=== PATIENT | female | born 1955 | race Caucasian/White ===

== ENCOUNTER 2019-08-26 16:33 | Emergency (ER) | payer BC ==
--- OUTSIDE RECORDS SUMMARY | 2019-08-26 16:39 | XMS REPORT | Continuity of Care Document ---
:1955 External Reference #:[id number] Author Name Jacinta Zambrano MD Address [address] [place] [address] Problems Active Problems Provider Date Tubular adenoma of colon Onset: 07/16/2018 Acute meniscal tear, lateral Onset: 07/01/2018 Osteopenia Onset: 02/06/2018 Mitral valve regurgitation Onset: 01/23/2018 Allergic rhinitis Onset: 04/06/2015 Social History Type Date Description Comments Sex Unknown Tobacco Use Start: Unknown End: Unknown Patient is a former smoker Smoking Status Reviewed: 07/31/19 Patient is a former smoker Allergies, Adverse Reactions, Alerts Description No Known Drug Allergies Medications Active Medications SIG Qnty Indications Ordering Provider Date Fish Oil 1000mg Unknown Capsules Multivitamin Adult Unknown Tablets Immunizations CPT Code Status Date Vaccine Lot # [id number] Given 05/05/2019 Flu < 65 years [id number] 28328 Given 01/17/2019 Shingrix - Shingles vaccine, Herpes Zoster 24511 Given 10/09/2016 Influenza Virus Vaccine, Quadrivalent, Split Virus, Im Use 0.5ML 13780 Given 10/09/2016 Flu < 65 years 03485 Given 10/09/2016 Influenza Virus Vaccine, Quadrivalent, Split, Preservative Free 25017 Given 10/09/2016 Flumist 80568 Given 10/09/2016 Flu High Dose 92425 Given 10/09/2016 Influenza Virus Vaccine, Split, Preserv Free, Intradermal Use 58556 Given 10/04/2015 Tdap - Boostrix/Adacel 93268 Given 11/12/2012 Hep A Adult for >18 yrs Havrix/Vaqta 05850 Given 11/12/2012 Typhoid Vaccine Vicps Intramuscular 25365 Given 05/19/2011 Influenza Virus Vaccine, Quadrivalent, Split, Im Use 0.25ML 86051 Given 05/19/2011 Influenza Virus Vaccine, Quadrivalent, Split, Im Use 0.25ML 92167 Given 05/19/2011 Influenza Virus Vaccine, Quadrivalent, Split, Im Use 0.25ML 98955 Given 05/19/2011 Influenza Virus Vaccine, Quadrivalent, Split, Im Use 0.25ML 24312 Given 05/19/2011 Influenza Virus Vaccine Split Virus Intramuscular Use 0.5ML 75901 Refused 01/23/2018 Influenza Virus Vaccine, Quadrivalent, Split, Im Use 0.25ML 93051 Refused 07/14/2014 Influenza Virus Vaccine, Quadrivalent, Split, Im Use 0.25ML Vital Signs Date Vital Result Comment 07/31/2019 2:12pm BP Systolic 114 mmHg BP Diastolic 72 mmHg Height 65.25 inches 5'5.25" Weight 141.00 lb Heart Rate 74 /min Body Temperature 98.6 F O2 % BldC Oximetry 98 % BMI (Body Mass Index) 23.3 kg/m2 05/05/2019 8:57am BP Systolic 98 mmHg BP Diastolic 64 mmHg Height 65.25 inches 5'5.25" Weight 141.00 lb Heart Rate 61 /min Body Temperature 96.1 F O2 % BldC Oximetry 98 % BMI (Body Mass Index) 23.3 kg/m2 Abdominal Girth Measurement 32.75 inches Results Test Acquired Facility Test Result H/L Range Note Date 10 Yr CHD Risk 02/06/2019 N2N/CCD Import 10 Yr CHD Risk 2.5%. TSH 02/03/2019 N2N/CCD Import TSH 2.47 0.34-5.60 mcIU/mL mcIU/mL Triglycerides 02/03/2019 N2N/CCD Import Triglycerides 96 mg/dL Sodium 02/03/2019 N2N/CCD Import Sodium 140 mmol/L 135-145 mmol/L PTT 02/03/2019 N2N/CCD Import PTT 32.4 26.0-38.0 seconds seconds Protein, Total 02/03/2019 N2N/CCD Import Protein, Total 6.2 g/dL Low 6.4- 8.9 g/dL Potassium 02/03/2019 N2N/CCD Import Potassium 4.2 mmol/L 3.5-5.0 mmol/L LDL Cholesterol 02/03/2019 N2N/CCD Import LDL Cholesterol 131 mg/dL HDL Cholesterol 02/03/2019 N2N/CCD Import HDL Cholesterol 71.8 mg/dL Glucose 02/03/2019 N2N/CCD Import Glucose 85 mg/dL 70-100 mg/dL Globulin 02/03/2019 N2N/CCD Import Globulin 2.0 g/dL 2-4 g/dL GFR Non Afr Amer 02/03/2019 N2N/CCD Import GFR Non Afr Amer 67.8 _ >60 GFR Afr Amer 02/03/2019 N2N/CCD Import GFR Afr Amer 82.0 _ >60 Creatinine 02/03/2019 N2N/CCD Import Creatinine 0.85 mg/dL 0.51-0.95 mg/dL Co2 02/03/2019 N2N/CCD Import Co2 27 mmol/L 22-32 mmol/L Cholesterol 02/03/2019 N2N/CCD Import Cholesterol 222 mg/dL Chloride 02/03/2019 N2N/CCD Import Chloride 106 mmol/L 101-111 mmol/L Calcium 02/03/2019 N2N/CCD Import Calcium 9.4 mg/dL 8.6-10.3 mg/dL BUN/Creat Ratio 02/03/2019 N2N/CCD Import BUN/Creat Ratio 17.6 _ 8-20 BUN 02/03/2019 N2N/CCD Import BUN 15 mg/dL 6-24 mg/dL Bilirubin Total 02/03/2019 N2N/CCD Import Bilirubin Total 0.70 mg/dL 0.2 -1.0 mg/dL Ast 02/03/2019 N2N/CCD Import Ast 18 U/L 13-39 U/L Anion Gap 02/03/2019 N2N/CCD Import Anion Gap 7 mmol/L 2-11 mmol/L Alt 02/03/2019 N2N/CCD Import Alt 13 U/L 7-52 U/L Alk Phos 02/03/2019 N2N/CCD Import Alk Phos 72 U/L 34-104 U/L Albumin 02/03/2019 N2N/CCD Import Albumin 4.2 g/dL 3.2-5.2 g/dL A/G Ratio 02/03/2019 N2N/CCD Import A/G Ratio 2.1 _ 1-3 Procedures Description No Information Available Medical Devices Description No Information Available Encounters Type Date Location Provider Dx Diagnosis Office Visit 05/05/2019 [facility] Diana Rivas, Z00.00 Encntr for general 8:45a adult medical exam w/o abnormal findings Z23 Encounter for immunization Z68.23 Body mass index (BMI) 23.0-23.9, adult Assessments Date Code Description Provider 07/31/2019 M79.10 Myalgia, unspecified site Jacinta Zambrano MD 07/31/2019 M25.551 Pain in right hip Jacinta Zambrano MD 05/05/2019 Z00.00 Encounter for general adult medical Diana Rivas, examination without abnormal findings 05/05/2019 Z23 Encounter for immunization Diana Rivas DO 05/05/2019 Z68.23 Body mass index (BMI) 23.0-23.9, adult Diana Rivas DO Plan of Treatment No Information Available Functional Status Description No Information Available Mental Status Description No Information Available Referrals Description No Information Available
--- OUTSIDE RECORDS SUMMARY | 2019-08-26 16:39 | XMS REPORT | Continuity of Care Document ---
:1955 External Reference #:[id number] Author Name Jacinta Zambrano MD Address [address] [place] [address] Problems Active Problems Provider Date Tubular adenoma [...] CPT Code Status Date Vaccine Lot # [id number] Given 05/05/2019 Flu < 65 years [id number] 08862 Given 01/17/2019 Shingrix - Shingles vaccine, Herpes Zoster 53860 Given 10/09/2016 Influenza Virus Vaccine, Quadrivalent, Split Virus, Im Use 0.5ML 47002 Given 10/09/2016 Flu < 65 years 27434 Given 10/09/2016 Influenza Virus Vaccine, Quadrivalent, Split, Preservative Free 58393 Given 10/09/2016 Flumist 36244 Given 10/09/2016 Flu High Dose 82422 Given 10/09/2016 Influenza Virus Vaccine, Split, Preserv Free, Intradermal Use 43894 Given 10/04/2015 Tdap - Boostrix/Adacel 43761 Given 11/12/2012 Hep A Adult for >18 yrs Havrix/Vaqta 68463 Given 11/12/2012 Typhoid Vaccine Vicps Intramuscular 78858 Given 05/19/2011 Influenza Virus Vaccine, Quadrivalent, Split, Im Use 0.25ML 01919 Given 05/19/2011 Influenza Virus Vaccine, Quadrivalent, Split, Im Use 0.25ML 26032 Given 05/19/2011 Influenza Virus Vaccine, Quadrivalent, Split, Im Use 0.25ML 69599 Given 05/19/2011 Influenza Virus Vaccine, Quadrivalent, Split, Im Use 0.25ML 90765 Given 05/19/2011 Influenza Virus Vaccine Split Virus Intramuscular Use 0.5ML 97788 Refused 01/23/2018 Influenza Virus Vaccine, Quadrivalent, Split, Im Use 0.25ML 08596 Refused 07/14/2014 Influenza Virus Vaccine, Quadrivalent, Split, [...] Girth Measurement 32.75 inches Results Test Acquired Date Facility Test Result H/L Range Note Lyme Disease AB 07/31/2019 [facility] IgG Immunoblot Negative Negative Immunoblot WB [address] [place] [address] [phone] IgG detected against p41,p39 kDa IgM Immunoblot Negative Negative IgM detected against None kDa Lyme Disease Interpretation See Comment 1 Arthritis Panel 07/31/2019 [facility] Uric Acid 4.2 mg/dL Normal 2.3-6.[address] [place] [address] [phone] Rheumatoid Factor 11 IU/mL Normal <15 Erythrocyte Sed Rate 5 mm/Hr Normal 0-29 Anti-Nuclear Antibody 0.2 U 2 Cyclic Citrullinated Peptide <15.6 U 3 Interpretation See Comment 4 1 Specific serologic response to B. burgdorferi infection is not detected, but cannot rule out early infection during which low or undetectable antibody levels to B. burgdorferi may be present. If clinically indicated, a new serum specimen should be submitted in 7-14 days. ADDITIONAL INFORMATION Per CDC criteria, the Lyme IgG Immunoblot is interpreted as positive if IgG-class antibodies are detected to >=5 B. burgdorferi proteins, and the Lyme IgM Immunoblot is interpreted as positive if IgM-class antibodies are detected to >=2 B. burgdorferi proteins. Immunoblot patterns not meeting these criteria should not be interpreted as positive. Epitopes from certain B. burgdorferi proteins (e.g., p41) are conserved across other bacteria, which may lead to the detection of IgM- and/or IgG-class antibodies on the Lyme disease immunoblots in patients without Lyme disease. Immunoblot should only be ordered on specimens that are positive or equivocal by a FDA-licensed Lyme disease antibody screening test (e.g., EIA). Results of the Lyme IgM immunoblot should not be considered in patients with >= 30 days of symptoms. Test Performed by: [facility] [place] [address] Jewelsmith: Capo Frances M.D. Ph.D.; CLIA# [id number] 2 REFERENCE VALUE <=1.0 (Negative) 3 REFERENCE VALUE <20.0 (Negative) 4 Tests for antibodies to dsDNA and RORO antigens are not performed automatically unless the ANDREA result is > or = 3.0 U. Studies performed at [facility] indicate that positive ANDREA results <3.0 U are rarely accompanied by positive second order tests. Test Performed by: [facility] [place] [address] Jewelsmith: Capo Frances M.D. Ph.D.; CLIA# [id number] Procedures Description No Information Available Medical Devices Description No Information Available Encounters Type Date Location Provider Dx Diagnosis Office Visit 05/05/2019 [facility] Diana Rivas, Z00.00 Encntr for general 8:45a adult medical exam w/o abnormal findings Z23 Encounter for immunization Z68.23 Body mass index (BMI) 23.0-23.9, adult Assessments Date Code Description Provider 07/31/2019 M79.10 Myalgia, unspecified site Jacinta Zambrano MD 07/31/2019 M25.551 Pain in right hip Jacinta Zambrano MD 05/05/2019 Z00.00 Encounter for general adult medical Diana Rivas DO examination without abnormal findings 05/05/2019 Z23 Encounter for immunization Diana Rivas DO 05/05/2019 Z68.23 Body mass index (BMI) 23.0-23.9, adult Diana Rivas DO Plan of Treatment No Information Available Functional Status Description No Information Available Mental Status Description No Information Available Referrals Description No Information Available
[2019-08-26 16:46] VITALS: BP 123/74
--- NOTE | 2019-08-26 16:49 | UC ---
Knee Pain HPI - HPI Summary HPI Summary: 63 yo female presents with LEFT knee laceration. She tells me that she was walking the dog and tripped over some branches and landed on her left knee. Sustained a small laceration to the knee. Went home and washed the area and came to as she thinks she may need stitches. Unsure date of last tetanus. She is ambulatory without assistance. - History of Current Complaint Chief Complaint: UCLowerExtremity Stated Complaint: KNEE LAC Time Seen by Provider: 08/26/19 16:49 Hx Obtained From: Patient Onset/Duration: Sudden Onset Severity Initially: Mild Severity Currently: Mild Pain Intensity: 2 - Allergies/Home Medications Allergies/Adverse Reactions: Allergies Allergy/AdvReac Type Severity Reaction Status Date / Time No Known Allergies Allergy Verified 08/26/19 16:46 Home Medications: Home Medications Calcium Carbonate [Calcium] 500 mg PO DAILY 08/26/19 [History Confirmed 08/26/19 ] PMH/Surg Hx/FS Hx/Imm Hx - Additional Past Medical History Additional PMH: None - Surgical History Surgical History: Yes Surgery Procedure, Year, and Place: HERNIA REPAIR A CHILD. L 5TH FINGER NERVE REPAIR 2014 [facility]. VOCAL CORD SURGERY [place] - Family History Known Family History: Positive: Hypertension - Social History Lives: With Family Alcohol Use: Weekly Alcohol Amount: few glasses of wine Substance Use Type: None Smoking Status (MU): Former Smoker Length of Time of Smoking/Using Tobacco: 4 YRS Have You Smoked in the Last Year: No When Did the Patient Quit Smoking/Using Tobacco: IN 20'S Review of Systems All Other Systems Reviewed And Are Negative: No Constitutional: Positive: Negative Skin: Positive: Other - left knee laceration Respiratory: Positive: Negative Cardiovascular: Positive: Negative Neurovascular: Positive: Negative Musculoskeletal: Positive: Negative Neurological: Positive: Negative Psychological: Positive: Negative Physical Exam - Summary Physical Exam Summary: GENERAL: NAD. WDWN. No pain distress. SKIN: LEFT KNEE: Inferomedial anterior aspect with 5mm stellate shaped laceration. Clean appearing. CHEST: No accessory muscle use. Breathing comfortably and in no distress. CV: Pulses intact. Cap refill <2seconds MSK: LEFT KNEE FROM [facility]. NEURO: Alert. PSYCH: Age appropriate behavior. Triage Information Reviewed: Yes Vital Signs: Initial Vital Signs Temp 98 F 08/26/19 16:41 Pulse 70 08/26/19 16:41 Resp 16 08/26/19 16:41 BP 123/74 08/26/19 16:41 Pulse Ox 98 08/26/19 16:41 Vital Signs Reviewed: Yes Knee Pain Course/Dx - Course Course Of Treatment: The procedure was explained to the pt and all questions were answered. A time out was performed, witnessed, and signed. The area was irrigated with 200mL sterile saline. 1mL of 2% lidocaine without epi was administered and good anesthetization was achieved. In the usual sterile fashion, THREE 4-0 prolene interrupted sutures were placed. Homeostasis achieved. The wound was bandaged with telfa. Pt tolerated procedure well. tdap updated today. Will place her on keflex given dirty puncture-type wound and near joint space. - Differential Dx/Diagnosis Provider Diagnosis: Laceration of left knee Discharge ED - Sign-Out/Discharge Documenting (check all that apply): Patient Departure All imaging exams completed and their final reports reviewed: No Studies - Discharge Plan Condition: Stable Disposition: HOME Prescriptions: Cephalexin CAP* [Keflex CAP*] 500 mg PO TID #15 cap Patient Education Materials: Care For Your Stitches (ED), Laceration (ED) Referrals: Diana Rivas DO [Primary Care Provider] - Additional Instructions: 1) Please keep the area bandage, clean, dry, and intact for the next 24- 48hours. Then change the bandage daily until sutures are removed. 2) If you develop a fever, colored or thick discharge, increased pain or swelling - please call your PCP or return for a wound check. 3) Please return in 10-12 days to have your THREE sutures removed. - Billing Disposition and Condition Condition: STABLE Disposition: Home Laceration Repair - Laceration Repair 1 Description: Irregular Laceration Size After Repair: Length (cm) - 0.5 Modified For Repair: No Anesthesia Used: 2.0% Lido Irrigation With Pressure Irrigation Device: Yes Closure Material: Skin Adhesive, Sutures - #3 Closure Method: Single Layer Suture Of: Skin Suture Type: Prolene - 4-0
[2019-08-26] MEDS ORDERED: Lidocaine 2% PF * 5 ML VIAL INJ ONE (17:02)
[2019-08-26] MEDS ORDERED: Tetan/Diph/Pertus SYR(Tdap)* 0.5 ML SYR(BOOSTRIX) use SYR contains LATEX IM ONE (17:03)
== END 2019-08-26 17:45 | disposition home or self-care (01) ==
LOC: UCEAST 16:33
DX: S81.012A Laceration without foreign body, left knee, initial encounter (principal); Z87.891 Personal history of nicotine dependence; W01.0XXA Fall on same level from slipping, tripping and stumbling without subsequent striking against object, initial encounter; Y93.K1 Activity, walking an animal; Y92.9 Unspecified place or not applicable
CPT/HCPCS: 12001; 90715; 99212; G0463